=== PATIENT | male | born 1995 | race Caucasian/White ===

== ENCOUNTER 2020-02-27 13:32 | Emergency (ER) | payer BC ==
[~2020-02-27] VITALS: Ht 170.2 cm; Wt 72.6 kg
[2020-02-27 13:41] VITALS: BP 141/71
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
[2020-02-27] MEDS: ACETAMINOPHEN 325 MG TABLET PO ONE (14:11)
[2020-02-27] MEDS ORDERED: IBUPROFEN 600 MG TABLET PO ONE (14:12)
[2020-02-27] MEDS ORDERED: ACETAMINOPHEN ES 500 MG TABLET ONE (14:12)
[2020-02-27] MEDS: ACETAMINOPHEN ES 500 MG TABLET PO ONE (14:17)
[2020-02-27] MEDS: IBUPROFEN 600 MG TABLET PO ONE (14:17)
--- NOTE | 2020-02-27 14:18 | NUR ---
Patient discharged to home in stable condition. Written and verbal after care instructions given. Patient verbalizes understanding of instruction. Pt ambulatory with a steady gait
== END 2020-02-27 14:25 | disposition home or self-care (01) ==
LOC: ER 13:32
DX: M79.601 Pain in right arm (principal); R51 Headache; Z88.5 Allergy status to narcotic agent; V49.49XA Driver injured in collision with other motor vehicles in traffic accident, initial encounter; Y93.89 Activity, other specified; Y92.488 Other paved roadways as the place of occurrence of the external cause; Y99.8 Other external cause status